=== PATIENT | female | born 1985 | race Caucasian/White ===

== ENCOUNTER 2021-09-23 10:14 | Outpatient (CLI) | payer OTHER, SELFPAY ==
[2021-09-23 15:52] LABS: Chlamydia DNA Amplified* NOT DETECTED (No Detected); GC DNA Amplified* NOT DETECTED (No Detected)
== END 2021-09-23 10:15 | disposition home or self-care (01) ==
PROVIDERS: PCP Family Medicine; Visit Provider Registered Nurse
DX: N93.9 Abnormal uterine and vaginal bleeding, unspecified (principal); R03.0 Elevated blood-pressure reading, without diagnosis of hypertension
CPT/HCPCS: 84443; 84703; 87491; 87591

== ENCOUNTER 2021-10-03 07:19 | Outpatient (CLI) | payer OTHER, SELFPAY ==
--- NOTE | 2021-10-03 07:15 | CRLHL7_ITS ---
For Patients: As a result of the Century Cures Act, medical imaging exams and procedure reports are released immediately into your electronic medical record. You may view this report before your referring provider. If you have questions, please contact your health care provider. INDICATION: abnormal uterine and vaginal bleeding COMPARISON: 01/30/2019 TECHNIQUE: 2D ramos scale and color Doppler images were acquired of the pelvis using a transabdominal and transvaginal approach. FINDINGS: Sonographic images demonstrate a normal size and smooth outer contour of the uterus. Uterus measures 9.1 cm in length by 4.4 cm in AP diameter by 4.6 cm in transverse dimension. The myometrium has a normal uniform echotexture. The endometrial lining appears normal and measures 7 mm in composite thickness. The right ovary measures 5.2 x 2.4 x 2.0 cm in size and the left ovary is absent. The right ovary demonstrates normal arterial and venous blood flow on color Doppler analysis. There are no suspicious fluid collections within the cul-de-sac. Incidental note is made hyperechoic focus within the right adnexa which may represent an incidental lipoma. IMPRESSION: Normal endometrium measuring 7 millimeters. No uterine fibroid. Dictated by Adalberto Amador MD @ 10/03/2021 10:29:14 AM (Electronically Signed)
== END 2021-10-03 07:20 | disposition home or self-care (01) ==
PROVIDERS: PCP Family Medicine; Visit Provider Registered Nurse
DX: N93.9 Abnormal uterine and vaginal bleeding, unspecified (principal)
CPT/HCPCS: 76830; 76856; 93976

== ENCOUNTER 2022-10-30 10:16 | Outpatient (CLI) | payer OTHER, SELFPAY | END 2022-10-30 10:17 | disposition home or self-care (01) | PROVIDERS: PCP Family Medicine; Visit Provider Nurse Practitioner Family | DX: Z00.00 Encounter for general adult medical examination without abnormal findings (principal); Z13.6 Encounter for screening for cardiovascular disorders; Z13.1 Encounter for screening for diabetes mellitus | CPT/HCPCS: 80061; 82947 ==

== ENCOUNTER 2023-02-26 07:57 | Outpatient (CLI) | payer OTHER, SELFPAY ==
--- NOTE | 2023-02-26 08:15 | CRLHL7_ITS ---
For Patients: As a result of the Century Cures Act, medical imaging exams and procedure reports are released immediately into your electronic medical record. You may view this report before your referring provider. If you have questions, please contact your health care provider. BILATERAL SCREENING MAMMOGRAM WITH COMPUTER-AIDED DETECTION AND TOMOSYNTHESIS TECHNIQUE: CC and MLO views were obtained. These mammographic images have been obtained using full-field digital technique. These mammographic images were interpreted with the benefit of computer-aided detection. Breast Tomosynthesis was used in this interpretation. COMPARISON FILM: Baseline. FINDINGS: The breasts are heterogeneously dense, which may obscure small masses IMPRESSION: There is no radiographic evidence for malignancy. ASSESSMENT: BI-RADS Category 2: Benign RECOMMENDATION: Routine screening mammogram in 1 year. A lay language report of this examination will be provided to the patient. Adalberto Amador M.D. Diagnostic Radiologist [email or web address] SHELLEY/jazmin / be/Dictated by: Adalberto Amador MD @ 02/26/2023 10:00:00 AM (Electronically Signed)
== END 2023-02-26 07:58 | disposition home or self-care (01) ==
LOC: MAMMO 07:58
PROVIDERS: PCP Family Medicine; Visit Provider Nurse Practitioner Family
DX: Z12.31 Encounter for screening mammogram for malignant neoplasm of breast (principal); R92.2 Inconclusive mammogram
CPT/HCPCS: 77063; 77067

== ENCOUNTER 2023-07-12 12:45 | Outpatient (CLI) | payer OTHER, SELFPAY ==
--- NOTE | 2023-07-12 13:00 | MR_ITS ---
[address] [address] Phone:?[phone] Fax:?[phone] Referring Physician Information: Jose E Mobley M.D. [address] [address] Phone:?[phone] Fax:?[phone] Patient:Marycruz Ordoñez Vera.O.B:?1985 Sex:?Female Phone:?[phone] [facility] MRN:?[id number] Exam Date:?07/12/2023 EXAM: MRI of the RIGHT HIP, without contrast CLINICAL: Right hip pain status post fall a few years ago. Evaluate for stress fracture. COMPARISONS: None available. TECHNICAL: Multiplanar multisequence MRI of the right hip was obtained. Coronal large [id number] sequences of the pelvis/bilateral hips were also obtained. SEDATION: None. CONTRAST: None. FINDINGS: Hip joint: Physiologic volume of joint fluid. No convincing loose bodies. No demonstrable high-grade or full-thickness chondral loss. Labrum: There is ill-defined fraying/tearing of the anterosuperior labrum as seen on axial oblique series 7 image 13-16. No perilabral cyst formation identified. Proximal femur: No marrow edema, fracture or osteonecrosis. No convincing femoral cam morphology. Acetabulum: No significant subchondral marrow edema, cystic change or fracture. Version: No convincing retroversion. Coverage: Right lateral center edge (CE) angle measures approximately 24? (normal 25?-39?), midline coronal series 5 image 14. Ligamentum teres: Intact and unremarkable. Pelvis osseous structures: There is mild marrow edema involving the right ischial tuberosity at the proximal right hamstring tendon attachment. No additional evidence of pelvic bone marrow edema and there is no evidence of pelvic fracture. Sacroiliac joints are maintained without marrow signal changes to suggest sacroiliitis or significant arthrosis. No evident arthrosis or changes of osteitis pubis at the symphysis pubis. Myotendinous structures: Gluteus abductors: No convincing insertional tendinopathy or tear of gluteus minimus or medius. Adductors: No demonstrable tendinopathy or strain/tear. Hamstrings: Intact semimembranosus, semitendinosus and biceps femoris tendons, without tendinopathy or tear. Flexors: Intact iliopsoas and rectus femoris, without strain/tear. External rotators: Intact. The ischiofemoral and quadratus femoris spaces are within normal limits. Gluteal aponeurotic fascia and IT band: Unremarkable. Bursae: No demonstrable trochanteric or iliopsoas bursitis. Intrapelvic structures: Small right ovarian cyst measures approximately 2.5 cm in craniocaudal dimension as seen on coronal series 3 image 15 with small adjacent ovarian follicles are present. Intrauterine device is in place. Disc desiccation is seen to involve the lumbosacral junction. IMPRESSION: 1. Ill-defined fraying/tearing of the anterosuperior labrum. 2. Slightly low volume right hip. 3. Mild marrow edema involving the right ischial tuberosity adjacent to the proximal right hamstring tendon attachment may reflect mild stress related change. No evidence of fracture. Proximal right hamstring tendons are intact and unremarkable. 4. Small 2.5 cm right ovarian cyst with adjacent small ovarian follicles. Z Electronically signed on 07/13/2023 9:17:00 AM by Harry Hernandez D.O.
== END 2023-07-12 12:46 | disposition home or self-care (01) ==
LOC: MRI 12:46
PROVIDERS: PCP Family Medicine; Visit Provider Orthopaedic Surgery Sports Medicine
DX: M25.551 Pain in right hip (principal); M84.351A Stress fracture, right femur, initial encounter for fracture; S73.101A Unspecified sprain of right hip, initial encounter; N83.201 Unspecified ovarian cyst, right side
CPT/HCPCS: 73721

== ENCOUNTER 2023-08-08 15:39 | Outpatient (CLI) | payer OTHER, SELFPAY ==
--- NOTE | 2023-08-08 16:00 | CRLHL7_ITS ---
For Patients: As a result of the Century Cures Act, medical imaging exams and procedure reports are released immediately into your electronic medical record. You may view this report before your referring provider. If you have questions, please contact your health care provider. INDICATION: Ovarian cyst on MRI COMPARISON: MRI hip 07/12/2023 TECHNIQUE: 2D ramos scale and color Doppler images were acquired of the pelvis using a transabdominal and transvaginal approach. FINDINGS: Sonographic images demonstrate a normal size and smooth outer contour of the uterus. Uterus measures 8.9 cm in length by 4.3 cm in AP diameter by 5.1 cm in transverse dimension. The myometrium has a normal uniform echotexture. The endometrial lining measures 3 millimeters. IUD is present in good position. Simple cyst right ovary measures 1.6 x 1.2 x 1.6 cm. No internal color Doppler flow. Right ovary measures 4.3 x 2.2 x 2.3 cm. Left ovary is absent. There are no suspicious fluid collections within the cul-de-sac. IMPRESSION: Simple cyst right ovary measuring 1.6 cm. Dictated by Adalberto Amador MD @ 08/09/2023 10:48:46 AM (Electronically Signed)
== END 2023-08-08 15:40 | disposition home or self-care (01) ==
LOC: US 15:40
PROVIDERS: PCP Family Medicine; Visit Provider Registered Nurse
DX: N83.209 Unspecified ovarian cyst, unspecified side (principal); N83.201 Unspecified ovarian cyst, right side
CPT/HCPCS: 76830; 76856; 93976

== ENCOUNTER 2023-08-16 12:42 | Outpatient (RCR) | payer OTHER, SELFPAY | END 2023-10-17 08:01 | disposition home or self-care (01) | PROVIDERS: PCP Family Medicine; Visit Provider Orthopaedic Surgery Sports Medicine | DX: M76.891 Other specified enthesopathies of right lower limb, excluding foot (principal); M25.551 Pain in right hip; Z51.89 Encounter for other specified aftercare | CPT/HCPCS: 97110; 97140; 97161 ==

== ENCOUNTER 2023-09-04 13:10 | Outpatient (CLI) | payer OTHER, SELFPAY ==
[2023-09-04 16:12] LABS: Chlamydia DNA Amplified* NOT DETECTED (No Detected); GC DNA Amplified* NOT DETECTED (No Detected)
== END 2023-09-04 13:11 | disposition home or self-care (01) ==
LOC: NFLDREF 13:11
PROVIDERS: PCP Family Medicine; Visit Provider Registered Nurse
DX: R10.2 Pelvic and perineal pain (principal); Z11.3 Encounter for screening for infections with a predominantly sexual mode of transmission
CPT/HCPCS: 87086; 87491; 87591